=== PATIENT | male | born 1960 | race Caucasian/White ===

== ENCOUNTER 2020-05-17 06:59 | Outpatient (CLI) | payer MEDICARE, SELFPAY ==
--- NOTE | 2020-05-17 07:07 | CT_ITS ---
WS: [id number] LDCT LUNG CANCER SCREENING TECHNIQUE: Noncontrast CT of the chest with coronal and sagittal reformatted images. CLINICAL INFORMATION: HISTORY OF [place]AC[place] USE COMPARISON: None. DLP: 75.08 mGy.cm DIvol: 2.[address] scans at [facility] use at least one of these dose optimization techniques: automat ed exposure control; mA and/or kV adjustment per patient size (includes targeted exams where dose is matched to clinical indication); or iterative reconstruction. FINDINGS: Mild chronic emphysematous changes. No acute pulmonary infiltrates. Calcified granuloma right lower l obe. 5 mm noncalcified nodule left lower lobe along the fissure. No mediastinal or hilar lymphadenopathy. No axillary lymphadenopathy.Adrenal glands are normal. Small esophageal hiatal hernia. CT/CT lung screening [id number] IMPRESSION: LUNG-RADS: 2-Benign Appearance or Behavior FOLLOW UP: 12 Month: Continue annual screening with LDCT
== END 2020-05-17 07:00 | disposition home or self-care (01) ==
LOC: CT 07:05
PROVIDERS: PCP Family Medicine; Visit Provider Family Medicine
DX: Z12.2 Encounter for screening for malignant neoplasm of respiratory organs (principal); Z87.891 Personal history of nicotine dependence
CPT/HCPCS: G0297

== ENCOUNTER → 2020-05-19 14:50 | Outpatient (BNVA) | payer MEDICARE, SELFPAY | PROVIDERS: PCP Family Medicine; Referring Provider Physician Assistant; Visit Provider Specialist | DX: R55 Syncope and collapse (principal) | CPT/HCPCS: 95816 ==

== ENCOUNTER 2020-06-01 00:21 | Emergency (ER) | payer MEDICARE, SELFPAY ==
[2020-06-01 00:27] VITALS: BP 132/92; PULSE 114; RESP 18; TEMP 36.4; O2SAT 96; BMI 25.8
[2020-06-01 00:31] VITALS: PULSE 113; RESP 18; O2SAT 99
--- NOTE | 2020-06-01 00:32 | W.ED.EXTPRO ---
HPI - Extremity Problem General: Chief complaint: Extremity Problem,Nontraumatic Stated complaint: left leg pain Time Seen by Provider: 06/01/20 00:32 History of Present Illness: HPI Narrative: Patient is a 59-year-old male who comes to the ED with pain on the left leg. Patient says yesterday morning he woke up and he had some redness, pain and swelling on lower left leg. He says the redness, swelling and tenderness has only progressed since yesterday. Towards the middle of the swelling there is a small superficial sore. Denies any purulent drainage. He rates the pain on his leg and 8 out of 10. Patient says he is not up-to-date on his tetanus. Denies any other symptoms such as shortness of breath or chest pain. Associated symptoms: Deny chest pain, fever(s) or rash Review of Systems Const: Denies: fever(s), chills or fatigue Eyes: Denies: change in vision or eye discomfort ENMT: Denies: throat pain, odynophagia, nasal discharge or nasal congestion Card: Denies: chest pain, palpitations, edema, swelling of feet/ankles, dyspnea on exertion or orthopnea Resp: Denies: dyspnea, productive cough or non-productive cough GI: Denies: abdominal pain, nausea, vomiting, diarrhea, constipation or hematochezia : Denies: flank pain, difficulty urinating, dysuria or hematuria Musc: Denies: neck pain, back pain or extremity swelling Skin/Breast: Reports: new lesions (Sore on left lower leg with erythema warmth and tenderness.); Denies: rash Neuro: Denies: headache(s), numbness in extremities or weakness in extremities Physical Exam Const: COMMON NORMALS: no acute distress, patient oriented x3, healthy appearing and alert GENERAL APPEARANCE: cooperative and comfortable HENMT: COMMON NORMALS: normocephalic HEAD & SCALP: normocephalic MOUTH: Normal oral and palatal mucosa present THROAT: posterior oropharynx normal and uvula midline Eye: COMMON NORMALS: Equal, round and reactive pupils present PUPIL: Yes Equal, round and reactive pupils present Neck/C-Spine: COMMON NORMALS: supple GENERAL: Yes normal visual inspection Resp: COMMON NORMALS: normal respiratory effort, No retractions, No use of accessory muscles and clear to auscultation bilaterally AUSCULTATION: clear to auscultation bilaterally Cardio: COMMON NORMALS: regular rate, regular rhythm, S1 normal heart sound present, S2 normal heart sound present, No gallops present (Cardio), No clicks present (Cardio), No murmurs present (Cardio) and Peripheral pulses 2+ throughout RATE: regular rate RHYTHM: regular rhythm HEART SOUNDS: S1 normal heart sound present and S2 normal heart sound present PERIPHERAL PULSES: Peripheral pulses 2+ throughout GI: COMMON NORMALS: Normal to inspection, nondistended, normoactive bowel sounds present, Soft to palpation, non-tender and no masses PALPATION: Yes Soft to palpation : COMMON NORMALS: Yes no CVA tenderness BLADDER/KIDNEY EXAM: Yes no CVA tenderness Back/Pelvis: COMMON NORMALS: no CVA tenderness Extremity: NARRATIVE EXTREMITY EXAM: Left lower leg.?Erythema warmth and swelling surrounding a small superficial ulcer located on the medial aspect of left lower leg just above ankle. Tender to palpation and swelling appears for indurated nonfluctuant. Findings suggestive of cellulitis with possible spider bite. GENERAL: Yes normal exam except as noted Neuro: COMMON NORMALS: patient oriented x3 and moves all extremities SENSORIUM/ORIENTATION: Yes alert Skin: NARRATIVE SKIN EXAM: Left lower leg.?Erythema warmth and swelling surrounding a small superficial ulcer located on the medial aspect of left lower leg just above ankle. Tender to palpation and swelling appears for indurated nonfluctuant. Findings suggestive of cellulitis with possible spider bite. Course Vital Signs: Vital signs: Vital Signs Temperature 97.5 F L 06/01/20 00:27 Pulse Rate 113 H 06/01/20 00:31 Respiratory Rate 18 06/01/20 00:31 Blood Pressure 132/92 06/01/20 00:27 Pulse Oximetry 99 06/01/20 00:31 MDM - Extremity (Nontraumatic) MDM Narrative: Medical decision making narrative: Patient is a 59-year-old male comes to the ED with lesion on left lower leg. Patient woke up with small lesion on left lower leg yesterday. Lesion has small superficial ulcer in the middle of it with edema, warmth and erythema surrounding it. It is firm to the touch. Nonfluctuant and indurated. Findings suggestive of cellulitis possibly after spider bite. Patient was given updated tetanus shot. He was put on a prescription of Bactrim and told to follow-up with his PCP in a week. Return to ED precautions given. Patient understood and agree with plan. Discharge Plan Discharge Patient Disposition: Home Clinical Impression: Accidental spider bite Cellulitis Qualifiers: Site of cellulitis: extremity Site of cellulitis of extremity: lower extremity Laterality: left Qualified Code(s): L03.116 - Cellulitis of left lower limb Condition: Stable Prescriptions: New Bactrim DS 800-160 mg tablet 1 tab PO BID 7 Days Qty: 14 RF: 0 No Action metoprolol tartrate 50 mg tablet 50 mg PO DAILY RF: 0 clotrimazole-betamethasone 1-0.05 % cream 1 applic topical BID RF: 0 meloxicam 15 mg tablet 15 mg PO DAILY RF: 0 methimazole 10 mg tablet 10 mg PO DAILY RF: 0 atorvastatin 20 mg tablet 20 mg PO DAILY RF: 0 aspirin [Adult Aspirin Regimen] 81 mg tablet,delayed release (DR/EC) 81 mg PO DAILY RF: 0 Discharge Orders: Discharge Order (Routine); Ordered 06/01/20 Ordered By: Kalen Echevarria Referrals: Denise Alexandra MD [Primary Care Provider] - Discharge Diet: Regular Discharge Activity: Resume usual activity Patient Instructions: Cellulitis (ED), [place] Spider Bite (ED) Activity Restrictions/Additional Instructions: Follow-up with medical provider as directed in about 7 days for reevaluation cellulitis. Take medications as prescribed. Return to the ER or your medical provider if condition worsens. Please read and understand discharge instructions. If any questions, please ask. Coding Level of Care Code ED Marshmallow Runner for Carey Fwd Exam Comprehensive
[2020-06-01] MEDS: HYDROcodone-acetaminophen 7.5-325 mg Tablet 2 TAB PO (00:53)
[2020-06-01] MEDS: sulfamethoxazole-trimeth DS 160-800 mg Tablet 1 TAB PO (00:53)
[2020-06-01] MEDS: tetanus-dipt-pertussis 0.5 mL SDV IM (00:57)
== END 2020-06-01 01:00 | disposition home or self-care (01) ==
PROVIDERS: Emergency Provider Physician Assistant; PCP Family Medicine
DX: L03.116 Cellulitis of left lower limb (principal); T63.301A Toxic effect of unspecified spider venom, accidental (unintentional), initial encounter; Z79.82 Long term (current) use of aspirin; Z23 Encounter for immunization
CPT/HCPCS: 12345; 90471; 90715; 99281; 99283

== ENCOUNTER → 2020-07-22 14:15 | Outpatient (BNVA) | payer MEDICARE, SELFPAY | PROVIDERS: PCP Family Medicine; Visit Provider Podiatrist Foot & Ankle Surgery | DX: M79.672 Pain in left foot (principal) | CPT/HCPCS: 73610; 73630 ==

== ENCOUNTER → 2020-12-15 10:48 | Outpatient (BNVA) | payer MEDICARE, MEDICAID, SELFPAY | PROVIDERS: PCP Family Medicine; Visit Provider Specialist | DX: G24.8 Other dystonia (principal); I65.21 Occlusion and stenosis of right carotid artery; F17.210 Nicotine dependence, cigarettes, uncomplicated | CPT/HCPCS: 99204 ==

== ENCOUNTER 2021-01-05 22:14 | Emergency (ER) | payer MEDICARE, SELFPAY ==
--- NOTE | 2021-01-05 22:16 | XRR_ITS ---
PROCEDURE INFORMATION: Exam: XR Chest Exam date and time: 01/05/2021 10:16 PM Age: 60 years old Clinical indication: Chest pressure and left-sided; Prior surgery; Surgery type: Loop recorder; Patient HX: Left sided chest/neck pain & pressure, PEARL x today; Additional info: Cp TECHNIQUE: Imaging protocol: XR of the chest. Views: 1 view. COMPARISON: CR Chest 1 [place] [id number] 12/26/2017 12:51 PM FINDINGS: Lungs: Emphysematous changes. Pleural spaces: Unremarkable. No pleural effusion. No pneumothorax. Heart/Mediastinum: Unremarkable. No cardiomegaly. Bones/joints: Unremarkable. XR/XR chest 1V portable [id number] IMPRESSION: Emphysematous changes, negative for infiltrate
--- NOTE | 2021-01-05 22:16 | ECG_ITS ---
[facility] Test Date: 2021-01-05 Pat Name: Pavan Phan Department: Room: Gender: Male Tax Services Intern: : 1960 Requested By: Ronda Ricketts Order Number: [id number] Jas MD: Glenn Barakat M.D. Measurements Intervals [place] Rate: 84 P: 70 MD: 168 QRS: 33 QRSD: 85 T: 51 QT: 346 QTc: 409 Interpretive Statements SINUS RHYTHM POSSIBLE LEFT ATRIAL ENLARGEMENT [-0.1mV P WAVE IN V1/V2] Compared to ECG 01/24/2018 06:18:46 No significant changes Electronically Signed On 01-06-2021 20:30:20 CDT by Glenn Barakat M.D. [id number]
[2021-01-05 22:36] VITALS: BP 118/83; PULSE 83; RESP 16; TEMP 36.4; O2SAT 98; BMI 25.8
== END 2021-01-05 23:31 | disposition left against medical advice (07) ==
LOC: ER 22:21
PROVIDERS: PCP Family Medicine
DX: Z53.21 Procedure and treatment not carried out due to patient leaving prior to being seen by health care provider (principal)
CPT/HCPCS: 71045; 93005

== ENCOUNTER 2021-01-25 13:58 | Outpatient (CLI) | payer MEDICARE, SELFPAY ==
--- NOTE | 2021-01-25 14:15 | MR_ITS ---
WS: [id number] MRA ANGIOGRAPHY [place] HISTORY: I63.9 - Cerebral infarction, unspecified COMPARISON: 03/27/2018 TECHNIQUE: 3-D MR angiography is performed of the [place]. All images are reviewed including source images. Distal vertebral and basilar arteries are intact with no significant stenosis or plaque. Posterior ce rebral arteries are normal course and caliber. Posterior communicating arteries are both patent. Intracranial portion of the internal carotid arteries are normal course and caliber. No significant a therosclerosis, stenosis or aneurysm identified. Middle and anterior cerebral arteries are both paten t with no significant progression of disease. Again noted is the decreased vascularity in the posteri or RIGHT MCA territory that was seen on the prior study in an area of encephalomalacia. This is uncha nged. Anterior communicating artery is also normal. MR/MR angio head wo con [id number] IMPRESSION: 1. No aneurysms or occlusions in the [place]. 2. Very mild decreased vascularity in the posterior RIGHT MCA territory in the area of encephalomalacia which is stable.
== END 2021-01-25 13:59 | disposition home or self-care (01) ==
LOC: RADSHAW 14:02
PROVIDERS: PCP Family Medicine; Visit Provider Specialist
DX: I63.9 Cerebral infarction, unspecified (principal)
CPT/HCPCS: 70544

== ENCOUNTER → 2021-04-06 12:43 | Outpatient (BNVA) | payer MEDICARE, SELFPAY | PROVIDERS: PCP Family Medicine; Visit Provider Specialist | DX: I69.352 Hemiplegia and hemiparesis following cerebral infarction affecting left dominant side (principal); F17.210 Nicotine dependence, cigarettes, uncomplicated | CPT/HCPCS: 99214 ==

== ENCOUNTER → 2021-09-30 08:42 | Outpatient (BNVA) | payer MEDICARE, SELFPAY | PROVIDERS: PCP Family Medicine; Visit Provider Internal Medicine Cardiovascular Disease | DX: R00.2 Palpitations (principal); E78.5 Hyperlipidemia, unspecified; I25.10 Atherosclerotic heart disease of native coronary artery without angina pectoris | CPT/HCPCS: 99214 ==

== ENCOUNTER 2022-06-23 13:13 | Outpatient (CLI) | payer MEDICARE, SELFPAY ==
--- NOTE | 2022-06-23 13:38 | CT_ITS ---
WS: [id number] LDCT LUNG CANCER SCREENING TECHNIQUE: Noncontrast CT of the chest with coronal and sagittal reformatted images. CLINICAL INFORMATION: NICOTINE DEPENDENCE,CIGARETTES COMPARISON: 2019 DLP: 83.81 mGy.cm DIvol: Mean CTDIvol: 1.60 (mGy) All CT scans at [facility] use at least one of these dose optimization techniques: automat ed exposure control; mA and/or kV adjustment per patient size (includes targeted exams where dose is matched to clinical indication); or iterative reconstruction. FINDINGS: Stable 5 mm noncalcified nodule along the LEFT fissure. Calcified granuloma RIGHT lower lobe.Lungs ar e well aerated. No acute pulmonary infiltrates. No mediastinal or hilar lymphadenopathy. Normal calib er thoracic aorta. Mild aortic calcification. No axillary lymphadenopathy. Adrenal glands are normal. Small esophageal hiatal hernia. CT/CT lung screening [id number] IMPRESSION: LUNG-RADS: 2-Benign Appearance or Behavior FOLLOW UP: 12 Month: Continue annual screening with LDCT
== END 2022-06-23 13:14 | disposition home or self-care (01) ==
PROVIDERS: PCP Family Medicine; Visit Provider Internal Medicine
DX: Z12.2 Encounter for screening for malignant neoplasm of respiratory organs (principal); F17.210 Nicotine dependence, cigarettes, uncomplicated
CPT/HCPCS: 71271

== ENCOUNTER 2022-08-20 02:23 | Emergency (ER) | payer MEDICARE, SELFPAY ==
[2022-08-20 02:48] VITALS: PULSE 112; RESP 14; TEMP 36.9; O2SAT 97; BMI 25.4
[2022-08-20] MEDS: dexamethasone 4 mg Tablet 8 MG PO (04:03)
[2022-08-20] MEDS: sulfamethoxazole-trimeth DS 160-800 mg Tablet 2 TAB PO (04:03)
--- NOTE | 2022-08-20 05:08 | ED_ITS ---
HPI - General Adult General: Chief complaint: General Medical Stated complaint: knot on chest, problems swallowing Time Seen by Provider: 08/20/22 03:29 Source: patient History of Present Illness: 62-year-old male who notes that he has had a knot pop up on his chest. It is mildly painful and itches. He denies fever. He notes that he had some trouble swallowing earlier, which is resolved now. No vomiting. Onset (ago): hour(s) Location: chest Radiation: non-radiation Severity: mild Quality: burning Pain Consistency: constant Relieving factors: none Exacerbating factors: none Associated symptoms: Reports rash; Deny chest pain, confusion, cough, diaphoresis, dyspnea, fevers/chills, headache(s) or vomiting Treatments prior to arrival: none Review of Systems Const: Denies: fever(s), chills or diaphoresis ENMT: Denies: throat pain Card: Denies: chest pain Resp: Denies: dyspnea GI: Denies: vomiting Skin/Breast: Reports: rash Neuro: Denies: headache(s) or confusion [facility] ED PFSH: Medical History CAD (coronary artery disease) CVA (cerebral vascular accident) Dyslipidemia Syncope Surgical History History of permanent cardiac pacemaker placement Social History Smoking and tobacco status: current every day smoker Physical Exam Const: COMMON NORMALS: no acute distress GENERAL APPEARANCE: cooperative; not ill appearing and not frail appearing HENMT: COMMON NORMALS: normocephalic, atraumatic and Normal external nose present HEAD & SCALP: normocephalic and atraumatic FACE & SINUS: normal facial exam and face symmetric NOSE: Normal external nose present Eye: COMMON NORMALS: Equal, round and reactive pupils present and EOMs intact bilaterally PUPIL: Yes Equal, round and reactive pupils present Neck/C-Spine: COMMON NORMALS: no lymphadenopathy GENERAL: Yes trachea midline and No anterior neck swelling Chest: OTHER: Inspection of chest wall reveals a small raised red and tender area over the sternal notch. No streaking redness. It is warm to the touch it is movable with skin. It is not fluctuant or draining. Resp: COMMON NORMALS: normal respiratory effort, No use of accessory muscles and clear to auscultation bilaterally AUSCULTATION: clear to auscultation bilaterally Cardio: COMMON NORMALS: regular rate and regular rhythm RATE: regular rate RHYTHM: regular rhythm GI: COMMON NORMALS: Normal to inspection, nondistended, normoactive bowel sounds present Skin: NARRATIVE SKIN EXAM: See above. The patient also has a chronic malar type rash of the face. Course Vital Signs: Vital signs: Vital Signs Temperature 98.4 F 08/20/22 02:48 Pulse Rate 112 H 08/20/22 02:48 Respiratory Rate 14 08/20/22 02:48 Pulse Oximetry 97 08/20/22 02:48 Oxygen Delivery Me thod 08/20/22 02:48 MDM - General Adult Medical Decision Making Early, nonfluctuant cellulitic area of the chest at the base of the neck. There may be a small abscess, although it is not worth draining. Patient is handling his own secretions fine. There is no more trouble swallowing. He is afebrile. He will be discharged on oral antibiotics to return if worsening. Discharge Plan Discharge Patient Disposition: Home Clinical Impression: Cellulitis and abscess of other specified site Condition: Stable Prescriptions: New Bactrim DS 800-160 mg tablet 1 tab PO DAILY 10 Days Qty: 20 0RF No Action clotrimazole-betamethasone 1-0.05 % cream 1 applic topical BID meloxicam 15 mg tablet 15 mg PO DAILY aspirin [Adult Aspirin Regimen] 81 mg tablet,delayed release (DR/EC) 81 mg PO DAILY varenicline [Chantix] 1 mg tablet 1 mg PO BID Qty: 56 5RF Rx Instructions: Take 1/2 tablet with breakfast in the morning for 7 days, then a whole tablet in the morning with breakfast. After several weeks may take 1 in the afternoon as well. Always with food. Never after 4 PM. (DME) Non articulating AFO Left See Rx Instructions .Route .MEDSUPPLY Qty: 1 0RF Rx Instructions: As directed atorvastatin 40 mg tablet 40 mg PO DAILY Qty: 90 3RF metoprolol succinate 50 mg tablet extended release 24 hr 50 mg PO DAILY Qty: 90 3RF Discharge Orders: Discharge ED (Routine); Ordered 08/20/22 Ordered By: Christopher Ma Referrals: Denise Alexandra MD [Primary Care Provider] - 1-3 days Patient Instructions: Cellulitis (ED) Activity Restrictions/Additional Instructions: Return for worsening swelling, pain, streaking redness, trouble breathing, trouble swallowing despite treatment return also for fever greater than 100 despite 2-3 doses of antibiotics Coding Level of Care Code ED Interactive Marketing Strategist for [facility] Davis
== END 2022-08-20 04:19 | disposition home or self-care (01) ==
PROVIDERS: Emergency Provider Emergency Medicine; PCP Family Medicine
DX: L03.313 Cellulitis of chest wall (principal); L02.213 Cutaneous abscess of chest wall; Z79.82 Long term (current) use of aspirin; I25.10 Atherosclerotic heart disease of native coronary artery without angina pectoris; Z86.73 Personal history of transient ischemic attack (TIA), and cerebral infarction without residual deficits; E78.5 Hyperlipidemia, unspecified; Z95.0 Presence of cardiac pacemaker; F17.210 Nicotine dependence, cigarettes, uncomplicated
CPT/HCPCS: 99283; J8540

== ENCOUNTER 2023-06-08 09:33 | Outpatient (CLI) | payer OTHER, MEDICARE, SELFPAY ==
--- NOTE | 2023-06-08 09:38 | CT_ITS ---
WS: [id number] LDCT LUNG CANCER SCREENING TECHNIQUE: Noncontrast CT of the chest with coronal and sagittal reformatted images. CLINICAL INFORMATION: NICOTINE DEPENDENCE,CIGARETTES COMPARISON: CT 06/23/2022 DLP: 52.02 mGy.cm DIvol: Mean CTDIvol: 0.90 (mGy) All CT scans at [facility] use at least one of these dose optimization techniques: automat ed exposure control; mA and/or kV adjustment per patient size (includes targeted exams where dose is matched to clinical indication); or iterative reconstruction. FINDINGS: Stable 5 mm noncalcified nodule along the LEFT fissure. Calcified granuloma RIGHT lower lobe. A few tree-in-bud opacities in the upper lobes laterally likely inflammatory. No new suspicious pulmonary parenchymal opacities. No mediastinal or hilar lymphadenopathy. Normal caliber thoracic aorta. Mild aortic calcification. No axillary lymphadenopathy. Adrenal glands are normal. Small esophageal hiatal hernia. IMPRESSION: CT/CT lung screening [id number] LUNG-RADS: 2-Benign Appearance or Behavior FOLLOW UP: 12 Month: Continue annual screening with LDCT
== END 2023-06-08 09:34 | disposition home or self-care (01) ==
PROVIDERS: PCP Family Medicine; Visit Provider Physician Assistant
DX: Z12.2 Encounter for screening for malignant neoplasm of respiratory organs (principal); F17.210 Nicotine dependence, cigarettes, uncomplicated
CPT/HCPCS: 71271

== ENCOUNTER 2024-10-22 10:28 | Emergency (ER) | payer MEDICARE, SELFPAY ==
[2024-10-22 11:17] VITALS: BP 117/71; PULSE 81; TEMP 36.3; O2SAT 98; BMI 25.8
--- NOTE | 2024-10-22 11:41 | W.ED.SKABFB ---
HPI - Skin/Abscess/Foreign Bdy General: Chief complaint: Skin/Abscess/Foreign Body Stated complaint: insect sting rt hand Time Seen by Provider: 10/22/24 11:39 History of Present Illness: 64-year-old man who presents emergency room after he was stung on his right index finger by a wasp. He has had worsening redness and swelling on the entire finger. He has some limited range of motion secondary to swelling and pain. He has not taken any Benadryl or other [id number] medications. He did put some peroxide on the stain. No fevers. Neurovascularly intact. Related Data Home Medications ?Medication ?Instructions ?Recorded ?Confirmed aspirin 81 mg tablet,delayed 81 mg PO DAILY 05/19/20 04/06/21 release (Adult Aspirin Regimen) clotrimazole-betamethasone 1 1 applic topical BID 05/19/20 04/06/21 %-0.05 % topical cream meloxicam 15 mg tablet 15 mg PO DAILY 05/19/20 04/06/21 Previous Rx's ?Medication ?Instructions ?Recorded Non articulating AFO Left #1 ea 07/22/20 varenicline tartrate 1 mg tablet 1 mg PO BID #56 tabs 04/06/21 (Chantix) atorvastatin 40 mg tablet 40 mg PO DAILY #90 tabs 09/30/21 metoprolol succinate 50 mg 50 mg PO DAILY #90 tabs 09/30/21 tablet,extended release 24 hr cephalexin 500 mg tablet 500 mg PO TID 5 days #15 tabs 10/22/24 dexamethasone 6 mg tablet 6 mg PO DAILY 5 days #5 tabs 10/22/24 Allergies Allergy/AdvReac Type Severity Reaction Status Date / Time gabapentin Allergy ADR-Halluci Verified 10/22/24 11:22 [facility] Review of Systems Narrative: Constitutional symptoms: Negative except as documented in HPI. Skin symptoms: Negative except as documented in HPI. Eye symptoms: Negative except as documented in HPI. ENMT symptoms: Negative except as documented in HPI. Respiratory symptoms: Negative except as documented in HPI. Cardiovascular symptoms: Negative except as documented in HPI. Gastrointestinal symptoms: Negative except as documented in HPI. Genitourinary symptoms: Negative except as documented in HPI. Musculoskeletal symptoms: Negative except as documented in HPI. Neurologic symptoms: Negative except as documented in HPI. Psychiatric symptoms: Negative except as documented in HPI. Endocrine symptoms: Negative except as documented in HPI. [facility] ED PFSH: Medical History CAD (coronary artery disease) CVA (cerebral vascular accident) Dyslipidemia Syncope Surgical History History of permanent cardiac pacemaker placement Social History Smoking and tobacco/nicotine status: current every day tobacco/nicotine user Physical Exam Narrative: EXAM NARRATIVE: General: Alert, no acute distress. Skin: warm and dry Head: Normocephalic Neck: Trachea midline Eye: Extraocular movements are intact. Ears, nose, mouth and throat: Oral mucosa moist Respiratory: Respirations are non-labored Musculoskeletal: Erythema and edema primarily on the dorsum of the right index finger. He is neurovascular intact. Does have some pain with palpation. Neurological: Alert and oriented, No focal neurological deficit observed. Psychiatric: Cooperative, appropriate mood & affect. Course Vital Signs: Vital signs: Vital Signs Temperature 97.4 F L 10/22/24 11:17 Pulse Rate 81 10/22/24 11:17 Blood Pressure 117/71 10/22/24 11:17 Pulse Oximetry 98 10/22/24 11:17 Oxygen Delivery Me thod Room Air 10/22/24 11:17 MDM - Skin/Abscess/Foreign Bdy Medicial Decision Making Assessment and plan: While standing ?Decadron in the emergency room. - Discharged home - Discussed plan with patient. Answered any questions. - Evaluation and treatment of this problem were appropriate in the emergency setting. No radiology studies performed this visit Discharge Plan Discharge Patient Disposition: Home Clinical Impression: Wasp sting Condition: Stable Prescriptions: New dexamethasone 6 mg tablet 6 mg PO DAILY 5 Days Qty: 5 0RF cephalexin 500 mg tablet 500 mg PO TID 5 Days Qty: 15 0RF No Action clotrimazole-betamethasone 1-0.05 % cream 1 applic topical BID meloxicam 15 mg tablet 15 mg PO DAILY aspirin [Adult Aspirin Regimen] 81 mg tablet,delayed release (DR/EC) 81 mg PO DAILY varenicline tartrate [Chantix] 1 mg tablet 1 mg PO BID Qty: 56 5RF Rx Instructions: Take 1/2 tablet with breakfast in the morning for 7 days, then a whole tablet in the morning with breakfast. After several weeks may take 1 in the afternoon as well. Always with food. Never after 4 PM. (DME) Non articulating AFO Left See Rx Instructions .Route .MEDSUPPLY Qty: 1 0RF Rx Instructions: As directed atorvastatin 40 mg tablet 40 mg PO DAILY Qty: 90 3RF metoprolol succinate 50 mg tablet extended release 24 hr 50 mg PO DAILY Qty: 90 3RF Discharge Orders: Discharge ED (Routine); Ordered 10/22/24 Ordered By: Nat Stein Referrals: Ashok Bustamante MD [Primary Care Provider] - Discharge Diet: Usual diet Discharge Activity: Increase activity as tolerated Patient Instructions: Insect Bite or Sting (ED), Opioid Safety, Pain Management Activity Restrictions/Additional Instructions: Thank you for choosing [facility] for your healthcare needs today. Please realize this is an emergency room and that we are providing you with a medical screening exam and this may not be complete and all inclusive of all the testing and or work up that you may need to determine your ailment or severity of your illness. You have been screened and evaluated and felt safe for discharge. Health conditions do change or evolve sometimes and as such it is important that you follow up with your Primary Doctor to be re checked, 3-5 days is a general good time frame for follow up. You are always welcome to return to the ED for re assessment if your symptoms are worsening or you have new concerns Print Language: Uzbek Coding Level of Care Code ED Terrazzo Journeyman for Carey Davis
[2024-10-22] MEDS: dexamethasone 10 mg/mL INJ IM (11:48)
[2024-10-22 12:06] VITALS: BP 128/78; PULSE 81; O2SAT 95
== END 2024-10-22 12:07 | disposition home or self-care (01) ==
PROVIDERS: Emergency Provider Emergency Medicine; PCP Family Medicine
DX: T63.461A Toxic effect of venom of wasps, accidental (unintentional), initial encounter (principal); X58.XXXA Exposure to other specified factors, initial encounter; Z72.0 Tobacco use; I25.10 Atherosclerotic heart disease of native coronary artery without angina pectoris; E78.5 Hyperlipidemia, unspecified; Z86.73 Personal history of transient ischemic attack (TIA), and cerebral infarction without residual deficits; Z95.0 Presence of cardiac pacemaker; Z79.82 Long term (current) use of aspirin
CPT/HCPCS: 96372; 99284; J1100